=== PATIENT | male | born 1945 | race African-American/Black ===

== ENCOUNTER 2020-02-29 05:10 | Inpatient (IN) ==
[2020-02-29] MEDS ORDERED: Bumetanide 1 MG/4 ML VIAL IVP ONE (05:23)
[2020-02-29 05:40] LABS: Basophils # 0.1 K/mcL (0.0-0.2); Basophils % 0.5 %; Eosinophils # 0.3 K/mcL (0.0-0.6); Eosinophils % 2.9 %; Hematocrit 44.8 % (37.5-50.1); Hemoglobin 13.7 g/dL (12.9-16.9); Immature Granulocytes % 0.3 % (0-4); Lymphocytes % 9.7 %; Mean Corpuscular HGB Conc 30.6 g/dL (31.6-35.5); Mean Corpuscular Hemoglobin 26.9 pg (28.0-33.3); Mean Corpuscular Volume 87.8 fL (83.0-100.0); Monocytes # 0.8 K/mcL (0.0-1.3); Neutrophils # 7.7 K/mcL (1.6-8.9); Platelet Count 226 K/mcL (140-400); Red Cell Distribution Width 18.6 % (11.5-14.5); Segmented Neutrophils % 78.6 %; White Blood Count 9.8 K/mcL (4.3-11.1)
[2020-02-29] MEDS ORDERED: methocarbamoL 500 MG TABLET PO STA (05:51)
[2020-02-29] MEDS ORDERED: methocarbamoL 500 MG TABLET PO ONE (06:00)
[2020-02-29 06:02] LABS: Calcium 9.6 mg/dL (8.6-10.3); Potassium 4.1 mEq/L (3.5-5.1)
[2020-02-29 06:06] LABS: Troponin I 0.04 ng/mL (< 0.04)
[2020-02-29] MEDS ORDERED: *HR* FentaNYL (PF) 100 MCG/2 ML VIAL IVP ONE (06:35)
[2020-02-29] MEDS ORDERED: Naloxone 0.4 MG/ML INJ IVP PRN (07:14)
[2020-02-29 07:18] LABS: Bilirubin,Urine Negative (Negative); Blood,Urine Negative (Negative); Clarity,Urine Clear (Clear); Color,Urine Light-Yellow (Yellow); Glucose,Urine (UA) Normal (Normal); Hyaline Casts,Urine Few per lpf (None Seen); Ketones,Urine Negative (Negative); Leukocyte Esterase,Urine Negative (Negative); Mucus,Urine Few per lpf (None-Few); Nitrite,Urine Negative (Negative); Protein,Urine 100 mg/dL (Neg-Trace); RBC,Urine 0-3 per hpf (0-3); Specific Gravity,Urine 1.015 (1.010-1.025); Squamous Epithelial Cell,Urine Few per hpf (None-Few); Urobilinogen,Urine Normal (Normal)
[2020-02-29] MEDS ORDERED: Dextrose Gel 15 GM/37.5 ML TUBE PO PRN ×2 (07:18)
[2020-02-29] MEDS ORDERED: D5% in Water 1,000 ML IVC PRN (07:18)
[2020-02-29] MEDS ORDERED: *HR* Dextrose 50 % in Water (Vial) 50 ML VIAL IVP PRN (07:18)
[2020-02-29] MEDS ORDERED: Perflutren Lipid Microsphere 1.3 ML in 0.9 % Sodium Chloride 8.7 ML IVP PRN (08:31)
[2020-02-29] MEDS ORDERED: Ipratropium/Albuterol Neb 3 ML IH PRN (08:37)
[2020-02-29] MEDS: Insulin LISPRO 300 UNITS/3 ML VIAL SQ SCH ×3 (08:50→16:46)
[2020-02-29] MEDS: carvediloL 25 MG TABLET PO SCH ×2 (09:13→16:47)
[2020-02-29] MEDS: Gabapentin 300 MG CAPSULE PO SCH ×3 (09:13→20:42)
[2020-02-29] MEDS: Isosorbide MONOnitrate (24 HR) 30 MG TAB.ER.24H PO SCH (09:13)
[2020-02-29] MEDS: *HR* HYDROcodone/Acet 5/325 mg TABLET PO PRN (09:13)
[2020-02-29] MEDS: Insulin DETEMIR 100 UNIT/ML X5UNITS SQ SCH ×2 (09:14→20:42)
[2020-02-29] MEDS: Bumetanide 1 MG/4 ML VIAL IVP SCH ×2 (09:14→16:47)
[2020-02-29] MEDS ORDERED: Gabapentin 300 MG CAPSULE PO ONE (09:49)
[2020-02-29] MEDS: *HR* Rivaroxaban 10 MG TABLET PO SCH (16:47)
[2020-03-01 03:47] LABS: Basophils # 0.1 K/mcL (0.0-0.2); Basophils % 0.6 %; Eosinophils # 0.3 K/mcL (0.0-0.6); Eosinophils % 3.2 %; Hematocrit 40.2 % (37.5-50.1); Hemoglobin 12.5 g/dL (12.9-16.9); Immature Granulocytes % 0.3 % (0-4); Lymphocytes % 10.8 %; Mean Corpuscular HGB Conc 31.1 g/dL (31.6-35.5); Mean Corpuscular Hemoglobin 27.5 pg (28.0-33.3); Mean Corpuscular Volume 88.4 fL (83.0-100.0); Monocytes # 0.8 K/mcL (0.0-1.3); Monocytes % 9.4 %; Neutrophils # 6.7 K/mcL (1.6-8.9); Platelet Count 185 K/mcL (140-400); Red Blood Count 4.55 M/mcL (4.19-5.50); Red Cell Distribution Width 18.5 % (11.5-14.5); Segmented Neutrophils % 75.7 %; White Blood Count 8.8 K/mcL (4.3-11.1)
[2020-03-01 04:02] LABS: INR 2.5; Prothrombin Time 28.7 Seconds (9.4-12.1)
[2020-03-01 04:05] LABS: Activated Partial Thrombo Time 36.1 Seconds (26.0-36.0)
[2020-03-01 04:08] LABS: Albumin 3.4 g/dL (3.5-5.7); Albumin/Globulin Ratio 1.1 (1.1-2.2); Bilirubin,Total 1.2 mg/dL (0.3-1.0); Calcium 9.3 mg/dL (8.6-10.3); Globulin 3.1 g/dL (2.4-3.5); Magnesium 1.5 mg/dL (1.6-2.6); Phosphorous 3.7 mg/dL (2.7-4.5); Potassium 3.8 mEq/L (3.5-5.1); Total Protein 6.5 g/dL (6.4-8.9)
[2020-03-01] MEDS: *HR* HYDROcodone/Acet 5/325 mg TABLET PO PRN ×3 (05:11→19:35)
[2020-03-01] MEDS: Gabapentin 300 MG CAPSULE PO SCH ×3 (07:55→19:36)
[2020-03-01] MEDS: Isosorbide MONOnitrate (24 HR) 30 MG TAB.ER.24H PO SCH (07:55)
[2020-03-01] MEDS: carvediloL 25 MG TABLET PO SCH ×2 (07:55→16:31)
[2020-03-01] MEDS: Insulin LISPRO 300 UNITS/3 ML VIAL SQ SCH ×3 (07:56→16:32)
[2020-03-01] MEDS: Bumetanide 1 MG/4 ML VIAL IVP SCH ×2 (07:56→16:31)
[2020-03-01] MEDS: Insulin DETEMIR 100 UNIT/ML X5UNITS SQ SCH ×2 (07:56→21:51)
[2020-03-01] MEDS: Silvasorb 44.4 ML TUBE TP SCH (16:31)
[2020-03-01] MEDS: *HR* Rivaroxaban 10 MG TABLET PO SCH (16:31)
[2020-03-01] MEDS: Albumin 25% 25gram/100mL 25 GM/100 ML IV.SOLN IVPB SCH ×2 (18:47→23:56)
[2020-03-02 01:55] LABS: Hematocrit 38.4 % (37.5-50.1); Mean Corpuscular HGB Conc 31.3 g/dL (31.6-35.5); Mean Corpuscular Hemoglobin 27.8 pg (28.0-33.3); Mean Corpuscular Volume 88.9 fL (83.0-100.0); Mean Platelet Volume 9.2 fL (9.4-12.4); Platelet Count 185 K/mcL (140-400); Red Blood Count 4.32 M/mcL (4.19-5.50); Red Cell Distribution Width 18.1 % (11.5-14.5)
[2020-03-02 02:03] LABS: Calcium 9.3 mg/dL (8.6-10.3); Magnesium 1.7 mg/dL (1.6-2.6); Phosphorous 3.7 mg/dL (2.7-4.5)
[2020-03-02] MEDS: Insulin LISPRO 300 UNITS/3 ML VIAL SQ SCH ×3 (07:41→15:35)
[2020-03-02] MEDS: Aspirin 81 MG TAB.CHEW PO SCH (07:50)
[2020-03-02] MEDS: carvediloL 25 MG TABLET PO SCH ×2 (07:50→15:27)
[2020-03-02] MEDS: Albumin 25% 25gram/100mL 25 GM/100 ML IV.SOLN IVPB SCH ×2 (07:51→15:26)
[2020-03-02] MEDS: Gabapentin 300 MG CAPSULE PO SCH ×3 (07:51→21:36)
[2020-03-02] MEDS: Isosorbide MONOnitrate (24 HR) 30 MG TAB.ER.24H PO SCH (07:51)
[2020-03-02] MEDS: Insulin DETEMIR 100 UNIT/ML X5UNITS SQ SCH ×2 (07:53→21:36)
[2020-03-02] MEDS: Bumetanide 1 MG/4 ML VIAL IVP SCH (10:26)
[2020-03-02] MEDS: lisinopriL 20 MG TABLET PO SCH (10:26)
[2020-03-02] MEDS: Spironolactone 25 MG TABLET PO SCH (10:26)
[2020-03-02] MEDS: Silvasorb 44.4 ML TUBE TP SCH (10:27)
[2020-03-02 10:31] LABS: Estimated Average Glucose 194 mg/dl
[2020-03-02] MEDS: Furosemide 240 MG in 0.9 % Sodium Chloride 96 ML IVC SCH (15:17)
[2020-03-02] MEDS: *HR* Rivaroxaban 10 MG TABLET PO SCH (15:27)
[2020-03-02] MEDS: *HR* HYDROcodone/Acet 5/325 mg TABLET PO PRN (15:35)
[2020-03-02 16:19] LABS: ABG Base Excess 1 mEq/L (-2 to 3); ABG HCO3 25 mEq/L (21-27); ABG Oxygen Saturation 95 % (95-98); ABG PCO2 41 mmHg (35-45); ABG PO2 76 mmHg (85-104); ABG TCO2 27 mEq/L (20-26); Blood Gas Modality 2.5
[2020-03-02] MEDS: Nystatin POWDER 30 GM BOTTLE TP SCH (21:36)
[2020-03-03 05:01] LABS: Hematocrit 39.5 % (37.5-50.1); Hemoglobin 12.3 g/dL (12.9-16.9); Mean Corpuscular HGB Conc 31.1 g/dL (31.6-35.5); Mean Corpuscular Hemoglobin 27.8 pg (28.0-33.3); Mean Corpuscular Volume 89.4 fL (83.0-100.0); Mean Platelet Volume 9.1 fL (9.4-12.4); Platelet Count 167 K/mcL (140-400); Red Blood Count 4.42 M/mcL (4.19-5.50); Red Cell Distribution Width 18.1 % (11.5-14.5); White Blood Count 7.1 K/mcL (4.3-11.1)
[2020-03-03 05:20] LABS: Albumin 3.8 g/dL (3.5-5.7); Albumin/Globulin Ratio 1.3 (1.1-2.2); Bilirubin,Total 1.6 mg/dL (0.3-1.0); Calcium 9.5 mg/dL (8.6-10.3); Globulin 2.9 g/dL (2.4-3.5); Magnesium 1.9 mg/dL (1.6-2.6); Phosphorous 3.9 mg/dL (2.7-4.5); Total Protein 6.7 g/dL (6.4-8.9)
[2020-03-03 05:27] LABS: % Iron Saturation 15 % (20-55); Iron 36 mcg/dL (65-175); Transferrin 174 mg/dL (203-362)
[2020-03-03 05:39] LABS: Ferritin 87 ng/mL (20-250)
[2020-03-03] MEDS: Insulin LISPRO 300 UNITS/3 ML VIAL SQ SCH ×3 (06:49→16:05)
[2020-03-03] MEDS: Spironolactone 25 MG TABLET PO SCH (08:55)
[2020-03-03] MEDS: Isosorbide MONOnitrate (24 HR) 30 MG TAB.ER.24H PO SCH (08:55)
[2020-03-03] MEDS: carvediloL 25 MG TABLET PO SCH ×2 (08:55→16:04)
[2020-03-03] MEDS: Aspirin 81 MG TAB.CHEW PO SCH (08:55)
[2020-03-03] MEDS: lisinopriL 20 MG TABLET PO SCH (08:55)
[2020-03-03] MEDS: Gabapentin 300 MG CAPSULE PO SCH ×3 (08:56→20:01)
[2020-03-03] MEDS: Silvasorb 44.4 ML TUBE TP SCH (08:56)
[2020-03-03] MEDS: Nystatin POWDER 30 GM BOTTLE TP SCH ×2 (08:56→20:22)
[2020-03-03] MEDS: Albumin 25% 25gram/100mL 25 GM/100 ML IV.SOLN IVPB SCH ×2 (09:00→18:08)
[2020-03-03] MEDS: Insulin DETEMIR 100 UNIT/ML X5UNITS SQ SCH (09:00)
[2020-03-03] MEDS: *HR* HYDROcodone/Acet 5/325 mg TABLET PO PRN ×2 (11:10→20:02)
[2020-03-03] MEDS: Furosemide 240 MG in 0.9 % Sodium Chloride 96 ML IVC SCH (13:30)
[2020-03-03] MEDS: *HR* Rivaroxaban 10 MG TABLET PO SCH (16:04)
[2020-03-04 05:16] LABS: Basophils % 0.6 %; Eosinophils # 0.2 K/mcL (0.0-0.6); Eosinophils % 3.2 %; Hematocrit 39.8 % (37.5-50.1); Hemoglobin 12.1 g/dL (12.9-16.9); Immature Granulocytes % 0.3 % (0-4); Lymphocytes # 0.9 K/mcL (0.6-4.6); Lymphocytes % 13.4 %; Mean Corpuscular HGB Conc 30.4 g/dL (31.6-35.5); Mean Corpuscular Hemoglobin 26.7 pg (28.0-33.3); Mean Corpuscular Volume 87.7 fL (83.0-100.0); Mean Platelet Volume 8.9 fL (9.4-12.4); Monocytes # 0.7 K/mcL (0.0-1.3); Monocytes % 10.5 %; Neutrophils # 4.7 K/mcL (1.6-8.9); Platelet Count 178 K/mcL (140-400); Red Blood Count 4.54 M/mcL (4.19-5.50); Red Cell Distribution Width 18.1 % (11.5-14.5); White Blood Count 6.5 K/mcL (4.3-11.1)
[2020-03-04 05:34] LABS: Albumin 3.7 g/dL (3.5-5.7); Albumin/Globulin Ratio 1.3 (1.1-2.2); Bilirubin,Direct 0.3 mg/dL (0.0-0.2); Bilirubin,Indirect 0.9 mg/dL (0.0-1.0); Bilirubin,Total 1.2 mg/dL (0.3-1.0); Calcium 9.4 mg/dL (8.6-10.3); Globulin 2.9 g/dL (2.4-3.5); Magnesium 1.9 mg/dL (1.6-2.6); Potassium 3.8 mEq/L (3.5-5.1); Total Protein 6.6 g/dL (6.4-8.9)
[2020-03-04 05:48] LABS: Thyroid Stimulating Hormone 7.733 mcIU/mL (0.340-5.600)
[2020-03-04] MEDS: *HR* HYDROcodone/Acet 5/325 mg TABLET PO PRN ×2 (06:04→17:12)
[2020-03-04] MEDS: Albumin 25% 25gram/100mL 25 GM/100 ML IV.SOLN IVPB SCH ×2 (06:04→17:20)
[2020-03-04] MEDS: carvediloL 25 MG TABLET PO SCH ×2 (09:58→17:11)
[2020-03-04] MEDS: Gabapentin 300 MG CAPSULE PO SCH ×3 (09:59→19:58)
[2020-03-04] MEDS: Aspirin 81 MG TAB.CHEW PO SCH (09:59)
[2020-03-04] MEDS: lisinopriL 20 MG TABLET PO SCH (09:59)
[2020-03-04] MEDS: Spironolactone 25 MG TABLET PO SCH (09:59)
[2020-03-04] MEDS: Insulin DETEMIR 100 UNIT/ML X5UNITS SQ SCH (09:59)
[2020-03-04] MEDS: Isosorbide MONOnitrate (24 HR) 30 MG TAB.ER.24H PO SCH (09:59)
[2020-03-04] MEDS: Insulin LISPRO 300 UNITS/3 ML VIAL SQ SCH ×3 (10:01→17:16)
[2020-03-04] MEDS: Nystatin POWDER 30 GM BOTTLE TP SCH ×2 (10:07→19:58)
[2020-03-04] MEDS: Silvasorb 44.4 ML TUBE TP SCH (10:08)
[2020-03-04 11:25] LABS: Total Volume 24 Hour,Urine 2.58 Liters (0.80-1.80)
[2020-03-04 11:51] LABS: Protein/Creatinine Ratio,Urine 0.74 mg/mg (0.00-0.20); Sodium, Urine 79.7 mEq/L
[2020-03-04] MEDS: Furosemide 240 MG in 0.9 % Sodium Chloride 96 ML IVC SCH (13:03)
[2020-03-04] MEDS ORDERED: Ondansetron 4 MG/2 ML VIAL IVP ONE (14:49)
[2020-03-04] MEDS ORDERED: Ferumoxytol 510 MG in 0.9 % Sodium Chloride 100 ML IVPB ONE (15:40)
[2020-03-04] MEDS: *HR* Rivaroxaban 10 MG TABLET PO SCH (17:11)
[2020-03-04] MEDS: Cyanocobalamin (B-12) 1,000 MCG/ML VIAL IM SCH (17:16)
[2020-03-04] MEDS: Sennosides 8.6 MG TABLET PO SCH ×2 (17:16→19:58)
[2020-03-05] MEDS: *HR* HYDROcodone/Acet 5/325 mg TABLET PO PRN ×3 (05:41→21:22)
[2020-03-05] MEDS: Albumin 25% 25gram/100mL 25 GM/100 ML IV.SOLN IVPB SCH (05:42)
[2020-03-05 07:29] LABS: Basophils % 0.4 %; Eosinophils # 0.2 K/mcL (0.0-0.6); Eosinophils % 3.3 %; Hematocrit 38.3 % (37.5-50.1); Hemoglobin 12.1 g/dL (12.9-16.9); Immature Granulocytes % 0.3 % (0-4); Lymphocytes # 0.8 K/mcL (0.6-4.6); Lymphocytes % 11.4 %; Mean Corpuscular HGB Conc 31.6 g/dL (31.6-35.5); Mean Corpuscular Hemoglobin 27.7 pg (28.0-33.3); Mean Corpuscular Volume 87.6 fL (83.0-100.0); Mean Platelet Volume 9.1 fL (9.4-12.4); Monocytes # 0.7 K/mcL (0.0-1.3); Monocytes % 10.3 %; Neutrophils # 5.3 K/mcL (1.6-8.9); Platelet Count 186 K/mcL (140-400); Red Blood Count 4.37 M/mcL (4.19-5.50); Red Cell Distribution Width 17.6 % (11.5-14.5); Segmented Neutrophils % 74.3 %; White Blood Count 7.2 K/mcL (4.3-11.1)
[2020-03-05 07:44] LABS: Calcium 9.6 mg/dL (8.6-10.3); Magnesium 1.8 mg/dL (1.6-2.6); Potassium 3.7 mEq/L (3.5-5.1)
[2020-03-05] MEDS: Spironolactone 25 MG TABLET PO SCH (09:18)
[2020-03-05] MEDS: Gabapentin 300 MG CAPSULE PO SCH ×3 (09:18→21:08)
[2020-03-05] MEDS: Aspirin 81 MG TAB.CHEW PO SCH (09:18)
[2020-03-05] MEDS: Insulin LISPRO 300 UNITS/3 ML VIAL SQ SCH ×3 (09:18→17:14)
[2020-03-05] MEDS: Cyanocobalamin (B-12) 1,000 MCG/ML VIAL IM SCH (09:18)
[2020-03-05] MEDS: Insulin DETEMIR 100 UNIT/ML X5UNITS SQ SCH (09:18)
[2020-03-05] MEDS: lisinopriL 20 MG TABLET PO SCH (09:18)
[2020-03-05] MEDS: Isosorbide MONOnitrate (24 HR) 30 MG TAB.ER.24H PO SCH (09:18)
[2020-03-05] MEDS: Sennosides 8.6 MG TABLET PO SCH ×2 (09:18→21:08)
[2020-03-05] MEDS: carvediloL 25 MG TABLET PO SCH ×2 (09:18→17:12)
[2020-03-05] MEDS: Cyanocobalamin (B-12) 1,000 MCG TABLET PO SCH (09:19)
[2020-03-05] MEDS: Silvasorb 44.4 ML TUBE TP SCH ×2 (13:08→22:02)
[2020-03-05] MEDS: Nystatin POWDER 30 GM BOTTLE TP SCH ×2 (13:08→21:08)
[2020-03-05] MEDS: Bumetanide 1 MG/4 ML VIAL IVP SCH (17:12)
[2020-03-05] MEDS: *HR* Rivaroxaban 10 MG TABLET PO SCH (17:12)
[2020-03-06 01:46] LABS: Basophils % 0.6 %; Eosinophils # 0.2 K/mcL (0.0-0.6); Eosinophils % 3.6 %; Hematocrit 36.1 % (37.5-50.1); Hemoglobin 11.3 g/dL (12.9-16.9); Immature Granulocytes % 0.6 % (0-4); Lymphocytes # 0.8 K/mcL (0.6-4.6); Lymphocytes % 11.5 %; Mean Corpuscular HGB Conc 31.3 g/dL (31.6-35.5); Mean Corpuscular Hemoglobin 27.4 pg (28.0-33.3); Mean Corpuscular Volume 87.4 fL (83.0-100.0); Mean Platelet Volume 9.6 fL (9.4-12.4); Monocytes # 0.8 K/mcL (0.0-1.3); Monocytes % 11.6 %; Neutrophils # 4.8 K/mcL (1.6-8.9); Platelet Count 192 K/mcL (140-400); Red Blood Count 4.13 M/mcL (4.19-5.50); Red Cell Distribution Width 17.5 % (11.5-14.5); Segmented Neutrophils % 72.1 %; White Blood Count 6.6 K/mcL (4.3-11.1)
[2020-03-06 02:00] LABS: Calcium 9.4 mg/dL (8.6-10.3)
[2020-03-06] MEDS: Aspirin 81 MG TAB.CHEW PO SCH (09:01)
[2020-03-06] MEDS: lisinopriL 10 MG TABLET PO SCH (09:01)
[2020-03-06] MEDS: Cyanocobalamin (B-12) 1,000 MCG TABLET PO SCH (09:01)
[2020-03-06] MEDS: *HR* HYDROcodone/Acet 5/325 mg TABLET PO PRN ×2 (09:01→17:16)
[2020-03-06] MEDS: Isosorbide MONOnitrate (24 HR) 30 MG TAB.ER.24H PO SCH (09:01)
[2020-03-06] MEDS: Spironolactone 25 MG TABLET PO SCH (09:01)
[2020-03-06] MEDS: Bumetanide 1 MG/4 ML VIAL IVP SCH ×2 (09:01→17:14)
[2020-03-06] MEDS: Sennosides 8.6 MG TABLET PO SCH (09:01)
[2020-03-06] MEDS: carvediloL 25 MG TABLET PO SCH ×2 (09:01→17:15)
[2020-03-06] MEDS: Gabapentin 300 MG CAPSULE PO SCH ×3 (09:01→21:10)
[2020-03-06] MEDS: Cyanocobalamin (B-12) 1,000 MCG/ML VIAL IM SCH (09:02)
[2020-03-06] MEDS: Silvasorb 44.4 ML TUBE TP SCH ×2 (09:03→22:00)
[2020-03-06] MEDS: Nystatin POWDER 30 GM BOTTLE TP SCH ×2 (09:13→21:10)
[2020-03-06] MEDS: Insulin DETEMIR 100 UNIT/ML X5UNITS SQ SCH (09:19)
[2020-03-06] MEDS: Insulin LISPRO 300 UNITS/3 ML VIAL SQ SCH ×3 (09:20→17:14)
[2020-03-06 13:50] LABS: Alpha 2 Globulin (PEP) 0.76 g/dL (0.48-1.05); Beta Globulin (PEP) 0.72 g/dL (0.48-1.10)
[2020-03-06 14:44] LABS: IFE Reflexed NOT DONE
[2020-03-06] MEDS: *HR* Rivaroxaban 10 MG TABLET PO SCH (17:14)
[2020-03-07 07:59] LABS: Basophils % 0.3 %; Eosinophils # 0.2 K/mcL (0.0-0.6); Eosinophils % 2.9 %; Hematocrit 39.3 % (37.5-50.1); Hemoglobin 12.4 g/dL (12.9-16.9); Immature Granulocytes % 0.3 % (0-4); Lymphocytes # 0.6 K/mcL (0.6-4.6); Lymphocytes % 8.7 %; Mean Corpuscular HGB Conc 31.6 g/dL (31.6-35.5); Mean Corpuscular Hemoglobin 27.7 pg (28.0-33.3); Mean Corpuscular Volume 87.9 fL (83.0-100.0); Mean Platelet Volume 9.2 fL (9.4-12.4); Monocytes # 0.7 K/mcL (0.0-1.3); Monocytes % 10.6 %; Neutrophils # 5.3 K/mcL (1.6-8.9); Platelet Count 178 K/mcL (140-400); Red Blood Count 4.47 M/mcL (4.19-5.50); Red Cell Distribution Width 17.2 % (11.5-14.5); Segmented Neutrophils % 77.2 %; White Blood Count 6.8 K/mcL (4.3-11.1)
[2020-03-07 08:19] LABS: Calcium 9.9 mg/dL (8.6-10.3); Magnesium 1.7 mg/dL (1.6-2.6); Potassium 4.1 mEq/L (3.5-5.1)
[2020-03-07] MEDS: Gabapentin 300 MG CAPSULE PO SCH ×3 (08:49→21:35)
[2020-03-07] MEDS: carvediloL 25 MG TABLET PO SCH ×2 (08:49→16:10)
[2020-03-07] MEDS: Cyanocobalamin (B-12) 1,000 MCG TABLET PO SCH (08:49)
[2020-03-07] MEDS: Isosorbide MONOnitrate (24 HR) 30 MG TAB.ER.24H PO SCH (08:49)
[2020-03-07] MEDS: Aspirin 81 MG TAB.CHEW PO SCH (08:49)
[2020-03-07] MEDS: Spironolactone 25 MG TABLET PO SCH (08:49)
[2020-03-07] MEDS: lisinopriL 10 MG TABLET PO SCH (08:49)
[2020-03-07] MEDS: Cyanocobalamin (B-12) 1,000 MCG/ML VIAL IM SCH (08:50)
[2020-03-07] MEDS: Bumetanide 1 MG/4 ML VIAL IVP SCH ×2 (08:50→16:10)
[2020-03-07] MEDS: Insulin LISPRO 300 UNITS/3 ML VIAL SQ SCH ×3 (08:50→18:15)
[2020-03-07] MEDS: *HR* HYDROcodone/Acet 5/325 mg TABLET PO PRN ×2 (08:52→21:34)
[2020-03-07] MEDS: Nystatin POWDER 30 GM BOTTLE TP SCH ×2 (08:52→21:35)
[2020-03-07] MEDS: Insulin DETEMIR 100 UNIT/ML X5UNITS SQ SCH (08:52)
[2020-03-07] MEDS: Silvasorb 44.4 ML TUBE TP SCH (08:53)
[2020-03-07] MEDS: *HR* Rivaroxaban 10 MG TABLET PO SCH (16:09)
[2020-03-08] MEDS: *HR* HYDROcodone/Acet 5/325 mg TABLET PO PRN ×3 (04:27→22:00)
[2020-03-08 04:40] LABS: Basophils % 0.3 %; Eosinophils # 0.2 K/mcL (0.0-0.6); Eosinophils % 2.9 %; Hematocrit 39.1 % (37.5-50.1); Hemoglobin 12.3 g/dL (12.9-16.9); Immature Granulocytes % 0.5 % (0-4); Lymphocytes # 0.5 K/mcL (0.6-4.6); Lymphocytes % 7.6 %; Mean Corpuscular HGB Conc 31.5 g/dL (31.6-35.5); Mean Corpuscular Hemoglobin 27.6 pg (28.0-33.3); Mean Corpuscular Volume 87.7 fL (83.0-100.0); Mean Platelet Volume 9.6 fL (9.4-12.4); Monocytes # 0.8 K/mcL (0.0-1.3); Monocytes % 13.2 %; Neutrophils # 4.5 K/mcL (1.6-8.9); Platelet Count 182 K/mcL (140-400); Red Blood Count 4.46 M/mcL (4.19-5.50); Red Cell Distribution Width 17.2 % (11.5-14.5); Segmented Neutrophils % 75.5 %; White Blood Count 5.9 K/mcL (4.3-11.1)
[2020-03-08 05:00] LABS: Calcium 9.8 mg/dL (8.6-10.3); Magnesium 1.7 mg/dL (1.6-2.6)
[2020-03-08] MEDS: Insulin LISPRO 300 UNITS/3 ML VIAL SQ SCH ×3 (08:35→18:02)
[2020-03-08] MEDS: Aspirin 81 MG TAB.CHEW PO SCH (09:49)
[2020-03-08] MEDS: Spironolactone 25 MG TABLET PO SCH (09:49)
[2020-03-08] MEDS: Isosorbide MONOnitrate (24 HR) 30 MG TAB.ER.24H PO SCH (09:49)
[2020-03-08] MEDS: Bumetanide 1 MG/4 ML VIAL IVP SCH ×2 (09:50→15:56)
[2020-03-08] MEDS: carvediloL 25 MG TABLET PO SCH ×2 (09:50→15:56)
[2020-03-08] MEDS: Cyanocobalamin (B-12) 1,000 MCG TABLET PO SCH (09:50)
[2020-03-08] MEDS: lisinopriL 10 MG TABLET PO SCH (09:50)
[2020-03-08] MEDS: Gabapentin 300 MG CAPSULE PO SCH ×3 (09:50→22:00)
[2020-03-08] MEDS: Insulin DETEMIR 100 UNIT/ML X5UNITS SQ SCH (09:54)
[2020-03-08] MEDS: Silvasorb 44.4 ML TUBE TP SCH ×2 (12:47→22:01)
[2020-03-08] MEDS: Nystatin POWDER 30 GM BOTTLE TP SCH ×2 (12:47→22:00)
[2020-03-08] MEDS: *HR* Rivaroxaban 10 MG TABLET PO SCH (15:56)
[2020-03-09 04:12] LABS: Basophils % 0.2 %; Eosinophils # 0.1 K/mcL (0.0-0.6); Eosinophils % 2.2 %; Hematocrit 39.6 % (37.5-50.1); Hemoglobin 12.3 g/dL (12.9-16.9); Immature Granulocytes % 0.3 % (0-4); Lymphocytes # 0.7 K/mcL (0.6-4.6); Lymphocytes % 11.7 %; Mean Corpuscular HGB Conc 31.1 g/dL (31.6-35.5); Mean Corpuscular Hemoglobin 26.9 pg (28.0-33.3); Mean Corpuscular Volume 86.5 fL (83.0-100.0); Mean Platelet Volume 9.3 fL (9.4-12.4); Monocytes # 0.9 K/mcL (0.0-1.3); Monocytes % 16.1 %; Platelet Count 174 K/mcL (140-400); Red Blood Count 4.58 M/mcL (4.19-5.50); Red Cell Distribution Width 17.1 % (11.5-14.5); Segmented Neutrophils % 69.5 %; White Blood Count 5.8 K/mcL (4.3-11.1)
[2020-03-09 04:37] LABS: Calcium 9.5 mg/dL (8.6-10.3); Magnesium 1.7 mg/dL (1.6-2.6); Potassium 3.9 mEq/L (3.5-5.1)
[2020-03-09] MEDS: carvediloL 25 MG TABLET PO SCH ×2 (09:12→16:59)
[2020-03-09] MEDS: Isosorbide MONOnitrate (24 HR) 30 MG TAB.ER.24H PO SCH (09:12)
[2020-03-09] MEDS: Insulin DETEMIR 100 UNIT/ML X5UNITS SQ SCH (09:12)
[2020-03-09] MEDS: lisinopriL 10 MG TABLET PO SCH (09:12)
[2020-03-09] MEDS: Aspirin 81 MG TAB.CHEW PO SCH (09:12)
[2020-03-09] MEDS: Gabapentin 300 MG CAPSULE PO SCH ×3 (09:12→22:07)
[2020-03-09] MEDS: Spironolactone 25 MG TABLET PO SCH (09:12)
[2020-03-09] MEDS: Nystatin POWDER 30 GM BOTTLE TP SCH ×2 (09:13→22:07)
[2020-03-09] MEDS: Cyanocobalamin (B-12) 1,000 MCG TABLET PO SCH (09:13)
[2020-03-09] MEDS: Insulin LISPRO 300 UNITS/3 ML VIAL SQ SCH ×3 (09:13→17:00)
[2020-03-09] MEDS: Bumetanide 1 MG/4 ML VIAL IVP SCH ×2 (09:13→16:59)
[2020-03-09] MEDS: *HR* HYDROcodone/Acet 5/325 mg TABLET PO PRN ×2 (15:01→22:07)
[2020-03-09] MEDS: *HR* Rivaroxaban 10 MG TABLET PO SCH (16:59)
[2020-03-10 03:07] LABS: Basophils % 0.4 %; Eosinophils # 0.2 K/mcL (0.0-0.6); Eosinophils % 3.7 %; Hemoglobin 11.8 g/dL (12.9-16.9); Immature Granulocytes % 0.2 % (0-4); Lymphocytes # 0.8 K/mcL (0.6-4.6); Lymphocytes % 14.8 %; Mean Corpuscular HGB Conc 31.1 g/dL (31.6-35.5); Mean Corpuscular Hemoglobin 26.8 pg (28.0-33.3); Mean Corpuscular Volume 86.2 fL (83.0-100.0); Mean Platelet Volume 9.4 fL (9.4-12.4); Monocytes # 0.8 K/mcL (0.0-1.3); Monocytes % 15.2 %; Neutrophils # 3.6 K/mcL (1.6-8.9); Platelet Count 170 K/mcL (140-400); Red Blood Count 4.41 M/mcL (4.19-5.50); Red Cell Distribution Width 16.9 % (11.5-14.5); Segmented Neutrophils % 65.7 %; White Blood Count 5.5 K/mcL (4.3-11.1)
[2020-03-10 03:26] LABS: Calcium 8.9 mg/dL (8.6-10.3); Magnesium 1.7 mg/dL (1.6-2.6); Potassium 3.6 mEq/L (3.5-5.1)
[2020-03-10] MEDS: *HR* HYDROcodone/Acet 5/325 mg TABLET PO PRN ×2 (06:07→21:12)
[2020-03-10] MEDS: Aspirin 81 MG TAB.CHEW PO SCH (09:12)
[2020-03-10] MEDS: Gabapentin 300 MG CAPSULE PO SCH ×3 (09:12→21:11)
[2020-03-10] MEDS: carvediloL 25 MG TABLET PO SCH ×2 (09:12→16:02)
[2020-03-10] MEDS: Spironolactone 25 MG TABLET PO SCH (09:12)
[2020-03-10] MEDS: lisinopriL 10 MG TABLET PO SCH (09:12)
[2020-03-10] MEDS: Insulin DETEMIR 100 UNIT/ML X5UNITS SQ SCH (09:12)
[2020-03-10] MEDS: Cyanocobalamin (B-12) 1,000 MCG TABLET PO SCH (09:12)
[2020-03-10] MEDS: Bumetanide 1 MG/4 ML VIAL IVP SCH ×2 (09:12→16:02)
[2020-03-10] MEDS: Isosorbide MONOnitrate (24 HR) 30 MG TAB.ER.24H PO SCH (09:12)
[2020-03-10] MEDS: Insulin LISPRO 300 UNITS/3 ML VIAL SQ SCH ×3 (09:13→16:02)
[2020-03-10] MEDS: Nystatin POWDER 30 GM BOTTLE TP SCH ×2 (09:13→21:15)
[2020-03-10] MEDS: Silvasorb 44.4 ML TUBE TP SCH (09:13)
[2020-03-10] MEDS: *HR* Rivaroxaban 10 MG TABLET PO SCH (16:01)
[2020-03-11] MEDS: *HR* HYDROcodone/Acet 5/325 mg TABLET PO PRN (05:08)
[2020-03-11 05:36] LABS: Basophils % 0.4 %; Eosinophils # 0.2 K/mcL (0.0-0.6); Eosinophils % 4.1 %; Immature Granulocytes % 0.2 % (0-4); Lymphocytes # 0.9 K/mcL (0.6-4.6); Lymphocytes % 16.7 %; Mean Corpuscular HGB Conc 30.8 g/dL (31.6-35.5); Mean Corpuscular Hemoglobin 27.4 pg (28.0-33.3); Mean Platelet Volume 9.5 fL (9.4-12.4); Monocytes # 0.6 K/mcL (0.0-1.3); Monocytes % 10.8 %; Neutrophils # 3.4 K/mcL (1.6-8.9); Platelet Count 175 K/mcL (140-400); Red Blood Count 4.38 M/mcL (4.19-5.50); Red Cell Distribution Width 16.9 % (11.5-14.5); Segmented Neutrophils % 67.8 %; White Blood Count 5.1 K/mcL (4.3-11.1)
[2020-03-11 05:53] LABS: Alanine Aminotransferase 13 Units/L (7-52); Albumin 3.8 g/dL (3.5-5.7); Albumin/Globulin Ratio 1.3 (1.1-2.2); Alkaline Phosphatase 90 Units/L (34-104); Aspartate Amino Transferase 19 Units/L (13-39); BUN/Creatinine Ratio 27 (6-26); Blood Urea Nitrogen 33 mg/dL (8-23); Calcium 9.2 mg/dL (8.6-10.3); Carbon Dioxide 31 mEq/L (23-29); Chloride 103 mEq/L (98-107); Glucose 90 mg/dL (70-105); Osmolality,Calculated 299 (280-300); Potassium 3.7 mEq/L (3.5-5.1); Sodium 141 mEq/L (136-145); Total Protein 6.8 g/dL (6.4-8.9); eGFR For African Americans > 60 (> 60); eGFR For Non-African Americans 57 (> 60)
[2020-03-11] MEDS: Insulin LISPRO 300 UNITS/3 ML VIAL SQ SCH ×3 (09:04→16:41)
[2020-03-11] MEDS: Isosorbide MONOnitrate (24 HR) 30 MG TAB.ER.24H PO SCH (10:20)
[2020-03-11] MEDS: Aspirin 81 MG TAB.CHEW PO SCH (10:20)
[2020-03-11] MEDS: Gabapentin 300 MG CAPSULE PO SCH ×3 (10:21→20:51)
[2020-03-11] MEDS: Bumetanide 1 MG/4 ML VIAL IVP SCH ×2 (10:21→16:30)
[2020-03-11] MEDS: lisinopriL 10 MG TABLET PO SCH (10:21)
[2020-03-11] MEDS: carvediloL 25 MG TABLET PO SCH ×2 (10:21→16:30)
[2020-03-11] MEDS: Spironolactone 25 MG TABLET PO SCH (10:21)
[2020-03-11] MEDS: Insulin DETEMIR 100 UNIT/ML X5UNITS SQ SCH (10:23)
[2020-03-11] MEDS: Silvasorb 44.4 ML TUBE TP SCH (10:41)
[2020-03-11] MEDS ORDERED: FLU Vac QV 20-21 (6Month+)/PF 0.5 ML SYRINGE IM ONE (10:41)
[2020-03-11] MEDS: Cyanocobalamin (B-12) 1,000 MCG TABLET PO SCH (10:42)
[2020-03-11] MEDS: Nystatin POWDER 30 GM BOTTLE TP SCH ×2 (12:09→20:52)
[2020-03-11] MEDS: *HR* Rivaroxaban 10 MG TABLET PO SCH (16:30)
[2020-03-12] MEDS: Insulin LISPRO 300 UNITS/3 ML VIAL SQ SCH ×3 (07:48→17:07)
[2020-03-12] MEDS: Bumetanide 1 MG/4 ML VIAL IVP SCH ×2 (09:12→17:07)
[2020-03-12] MEDS: Isosorbide MONOnitrate (24 HR) 30 MG TAB.ER.24H PO SCH (09:12)
[2020-03-12] MEDS: Spironolactone 25 MG TABLET PO SCH (09:13)
[2020-03-12] MEDS: Cyanocobalamin (B-12) 1,000 MCG TABLET PO SCH (09:13)
[2020-03-12] MEDS: carvediloL 25 MG TABLET PO SCH ×2 (09:13→17:07)
[2020-03-12] MEDS: Aspirin 81 MG TAB.CHEW PO SCH (09:13)
[2020-03-12] MEDS: Gabapentin 300 MG CAPSULE PO SCH ×2 (09:13→17:07)
[2020-03-12] MEDS: Insulin DETEMIR 100 UNIT/ML X5UNITS SQ SCH (09:14)
[2020-03-12] MEDS: Nystatin POWDER 30 GM BOTTLE TP SCH (09:15)
[2020-03-12] MEDS: Silvasorb 44.4 ML TUBE TP SCH (09:15)
[2020-03-12] MEDS: lisinopriL 10 MG TABLET PO SCH (09:15)
[2020-03-12 09:36] LABS: Magnesium 1.7 mg/dL (1.6-2.6)
[2020-03-12] MEDS: *HR* Rivaroxaban 10 MG TABLET PO SCH (17:07)
[2020-03-12 17:11] VITALS: BP 140/90
== END 2020-03-12 17:53 | disposition home health service (06) | DRG 280 ==
LOC: 2ANU 05:10 → EMEROOARM 05:10 → SUATTDRO 07:29 → 2ANU 08:00 → SUATTDRO 03-02 16:52
PROVIDERS: ADMIT Family Medicine; ATTEND Internal Medicine

== ENCOUNTER 2020-03-17 15:16 | Inpatient (IN) ==
[2020-03-17 18:33] LABS: Basophils % 0.2 %; Eosinophils % 0.1 %; Hematocrit 43.5 % (37.5-50.1); Immature Granulocytes % 0.7 % (0-4); Lymphocytes # 0.7 K/mcL (0.6-4.6); Lymphocytes % 8.6 %; Mean Corpuscular HGB Conc 31.3 g/dL (31.6-35.5); Mean Corpuscular Hemoglobin 26.1 pg (28.0-33.3); Mean Corpuscular Volume 83.3 fL (83.0-100.0); Mean Platelet Volume 10.6 fL (9.4-12.4); Monocytes # 0.7 K/mcL (0.0-1.3); Monocytes % 8.6 %; Neutrophils # 6.7 K/mcL (1.6-8.9); Platelet Count 253 K/mcL (140-400); Red Blood Count 5.22 M/mcL (4.19-5.50); Red Cell Distribution Width 16.5 % (11.5-14.5); Segmented Neutrophils % 81.8 %
[2020-03-17 18:37] LABS: Alanine Aminotransferase 35 Units/L (7-52); Albumin 3.4 g/dL (3.5-5.7); Alkaline Phosphatase 84 Units/L (34-104); Aspartate Amino Transferase 36 Units/L (13-39); BUN/Creatinine Ratio 22 (6-26); Bilirubin,Total 2.4 mg/dL (0.3-1.0); Blood Urea Nitrogen 31 mg/dL (8-23); Calcium 8.9 mg/dL (8.6-10.3); Carbon Dioxide 21 mEq/L (23-29); Chloride 104 mEq/L (98-107); Globulin 3.4 g/dL (2.4-3.5); Glucose 217 mg/dL (70-105); Osmolality,Calculated 299 (280-300); Potassium 3.5 mEq/L (3.5-5.1); Sodium 138 mEq/L (136-145); Total Protein 6.8 g/dL (6.4-8.9); Troponin I 0.07 ng/mL (< 0.04); eGFR For African Americans > 60 (> 60); eGFR For Non-African Americans 50 (> 60)
[2020-03-17 18:39] LABS: Hemoglobin 13.6 g/dL (12.9-16.9); White Blood Count 8.2 K/mcL (4.3-11.1)
[2020-03-17] MEDS ORDERED: Bumetanide 1 MG/4 ML VIAL IVP ONE (19:55)
[2020-03-17] MEDS ORDERED: Acetaminophen 325 MG TABLET PO PRN (20:27)
[2020-03-17] MEDS ORDERED: Naloxone 0.4 MG/ML INJ IVP PRN (20:27)
[2020-03-17] MEDS ORDERED: Ondansetron ODT 4 MG TAB.RAPDIS SL PRN (20:27)
[2020-03-17] MEDS ORDERED: *HR* Dextrose 50 % in Water (Vial) 50 ML VIAL IVP PRN (20:35)
[2020-03-17] MEDS ORDERED: Dexamethasone 4 MG/ML VIAL IVP ONE (20:35)
[2020-03-17] MEDS ORDERED: Dextrose Gel 15 GM/37.5 ML TUBE PO PRN ×2 (20:35)
[2020-03-17] MEDS ORDERED: D5% in Water 1,000 ML IVC PRN (20:35)
[2020-03-17 22:39] LABS: Bacteria,Urine Few per hpf (None-Few); Bilirubin,Urine Small (Negative); Blood,Urine Moderate (Negative); Clarity,Urine Clear (Clear); Color,Urine Yellow (Yellow); Glucose,Urine (UA) Normal (Normal); Granular Casts,Urine Moderate per lpf (None Seen); Hyaline Casts,Urine Moderate per lpf (None Seen); Ketones,Urine Negative (Negative); Leukocyte Esterase,Urine Negative (Negative); Mucus,Urine Few per lpf (None-Few); Nitrite,Urine Negative (Negative); PH,Urine 6.5 pH Units (5.0-8.0); Protein,Urine >=600 mg/dL (Neg-Trace); RBC,Urine 0-3 per hpf (0-3); Specific Gravity,Urine 1.024 (1.010-1.025); Squamous Epithelial Cell,Urine Few per hpf (None-Few)
[2020-03-17] MEDS ORDERED: Azithromycin 500 MG in 0.9 % Sodium Chloride 250 ML IVPB SCH (23:00)
[2020-03-18] MEDS: Insulin LISPRO 300 UNITS/3 ML VIAL SQ SCH ×4 (00:36→18:16)
[2020-03-18 01:02] LABS: Basophils % 0.4 %; Eosinophils % 0.3 %; Hematocrit 39.8 % (37.5-50.1); Hemoglobin 12.7 g/dL (12.9-16.9); Immature Granulocytes % 0.7 % (0-4); Lymphocytes # 0.9 K/mcL (0.6-4.6); Mean Corpuscular HGB Conc 31.9 g/dL (31.6-35.5); Mean Corpuscular Hemoglobin 26.3 pg (28.0-33.3); Mean Corpuscular Volume 82.6 fL (83.0-100.0); Mean Platelet Volume 9.9 fL (9.4-12.4); Monocytes # 0.6 K/mcL (0.0-1.3); Monocytes % 8.2 %; Neutrophils # 5.7 K/mcL (1.6-8.9); Platelet Count 209 K/mcL (140-400); Red Blood Count 4.82 M/mcL (4.19-5.50); Red Cell Distribution Width 16.5 % (11.5-14.5); Segmented Neutrophils % 78.4 %; White Blood Count 7.3 K/mcL (4.3-11.1)
[2020-03-18 01:04] LABS: BUN/Creatinine Ratio 22 (6-26); Blood Urea Nitrogen 31 mg/dL (8-23); Calcium 8.8 mg/dL (8.6-10.3); Carbon Dioxide 26 mEq/L (23-29); Chloride 104 mEq/L (98-107); Glucose 185 mg/dL (70-105); Magnesium 1.7 mg/dL (1.6-2.6); Osmolality,Calculated 301 (280-300); Potassium 3.6 mEq/L (3.5-5.1); Sodium 140 mEq/L (136-145); eGFR For African Americans > 60 (> 60); eGFR For Non-African Americans 50 (> 60)
[2020-03-18 01:05] LABS: INR 1.6
[2020-03-18 01:59] LABS: Troponin I 0.07 ng/mL (< 0.04)
[2020-03-18] MEDS ORDERED: Furosemide 20 MG/2 ML VIAL IVP SCH (08:00)
[2020-03-18] MEDS: Gabapentin 300 MG CAPSULE PO SCH ×3 (08:16→21:38)
[2020-03-18] MEDS: *HR* Rivaroxaban 10 MG TABLET PO SCH (08:16)
[2020-03-18] MEDS: carvediloL 25 MG TABLET PO SCH ×2 (08:16→18:16)
[2020-03-18] MEDS: Silvasorb 44.4 ML TUBE TP SCH (08:16)
[2020-03-18] MEDS: Aspirin 81 MG TAB.CHEW PO SCH (08:16)
[2020-03-18] MEDS: Isosorbide MONOnitrate (24 HR) 30 MG TAB.ER.24H PO SCH (08:16)
[2020-03-18] MEDS: Dexamethasone 4 MG/ML VIAL IVP SCH (15:23)
[2020-03-18] MEDS: Doxycycline 100 MG in 0.9 % Sodium Chloride Mini Bag 100 ML IVPB SCH (15:24)
[2020-03-18] MEDS: cefTRIAXone 1,000 MG in Water for inj. (sterile) 10 ML IVP SCH (15:24)
[2020-03-18] MEDS: Furosemide 20 MG/2 ML VIAL IVP SCH (18:16)
[2020-03-18] MEDS ORDERED: Insulin DETEMIR 100 UNIT/ML X5UNITS SQ SCH (21:45)
[2020-03-19] MEDS: Doxycycline 100 MG in 0.9 % Sodium Chloride Mini Bag 100 ML IVPB SCH ×2 (05:51→18:45)
[2020-03-19 07:13] LABS: Basophils % 0.1 %; Eosinophils % 0.1 %; Hematocrit 41.2 % (37.5-50.1); Hemoglobin 12.6 g/dL (12.9-16.9); Immature Granulocytes % 0.8 % (0-4); Lymphocytes # 0.5 K/mcL (0.6-4.6); Lymphocytes % 5.7 %; Mean Corpuscular HGB Conc 30.6 g/dL (31.6-35.5); Mean Corpuscular Hemoglobin 26.1 pg (28.0-33.3); Mean Corpuscular Volume 85.5 fL (83.0-100.0); Mean Platelet Volume 11.1 fL (9.4-12.4); Monocytes # 0.6 K/mcL (0.0-1.3); Neutrophils # 8.3 K/mcL (1.6-8.9); Nucleated Red Blood Cells 0.2 /100 WBC (0); Platelet Count 250 K/mcL (140-400); Red Blood Count 4.82 M/mcL (4.19-5.50); Red Cell Distribution Width 16.5 % (11.5-14.5); Segmented Neutrophils % 87.3 %; White Blood Count 9.5 K/mcL (4.3-11.1)
[2020-03-19 07:33] LABS: BUN/Creatinine Ratio 25 (6-26); Blood Urea Nitrogen 33 mg/dL (8-23); Calcium 8.8 mg/dL (8.6-10.3); Carbon Dioxide 27 mEq/L (23-29); Chloride 101 mEq/L (98-107); Glucose 384 mg/dL (70-105); Osmolality,Calculated 305 (280-300); Potassium 4.1 mEq/L (3.5-5.1); Sodium 136 mEq/L (136-145); eGFR For African Americans > 60 (> 60); eGFR For Non-African Americans 53 (> 60)
[2020-03-19] MEDS: Insulin LISPRO 300 UNITS/3 ML VIAL SQ SCH ×3 (08:32→17:18)
[2020-03-19] MEDS: Isosorbide MONOnitrate (24 HR) 30 MG TAB.ER.24H PO SCH (08:33)
[2020-03-19] MEDS: Gabapentin 300 MG CAPSULE PO SCH ×3 (08:33→20:44)
[2020-03-19] MEDS: Dexamethasone 4 MG/ML VIAL IVP SCH (08:33)
[2020-03-19] MEDS: Aspirin 81 MG TAB.CHEW PO SCH (08:33)
[2020-03-19] MEDS: *HR* Rivaroxaban 10 MG TABLET PO SCH (08:33)
[2020-03-19] MEDS: Furosemide 20 MG/2 ML VIAL IVP SCH ×2 (08:33→16:33)
[2020-03-19] MEDS: carvediloL 25 MG TABLET PO SCH ×2 (08:33→16:31)
[2020-03-19] MEDS: Nystatin POWDER 30 GM BOTTLE TP SCH ×2 (08:34→20:41)
[2020-03-19] MEDS: Insulin DETEMIR 100 UNIT/ML X5UNITS SQ SCH ×2 (16:25→20:44)
[2020-03-19] MEDS: Silvasorb 44.4 ML TUBE TP SCH (16:25)
[2020-03-19] MEDS: Spironolactone 25 MG TABLET PO SCH (16:31)
[2020-03-19] MEDS: cefTRIAXone 1,000 MG in Water for inj. (sterile) 10 ML IVP SCH (16:31)
[2020-03-19] MEDS ORDERED: Ondansetron 4 MG/2 ML VIAL IVP ONE ×2 (18:32→18:42)
[2020-03-19] MEDS ORDERED: Ondansetron ODT 4 MG TAB.RAPDIS SL PRN (21:03)
[2020-03-19] MEDS ORDERED: Prochlorperazine 10 MG/2 ML VIAL IVP PRN (23:38)
[2020-03-20 01:30] LABS: Basophils % 0.2 %; Eosinophils % 0.1 %; Hematocrit 39.1 % (37.5-50.1); Hemoglobin 12.3 g/dL (12.9-16.9); Immature Granulocytes % 1.4 % (0-4); Lymphocytes % 4.8 %; Mean Corpuscular HGB Conc 31.5 g/dL (31.6-35.5); Mean Corpuscular Hemoglobin 26.3 pg (28.0-33.3); Mean Corpuscular Volume 83.7 fL (83.0-100.0); Mean Platelet Volume 11.3 fL (9.4-12.4); Monocytes # 0.9 K/mcL (0.0-1.3); Monocytes % 5.5 %; Nucleated Red Blood Cells 0.2 /100 WBC (0); Platelet Count 255 K/mcL (140-400); Red Blood Count 4.67 M/mcL (4.19-5.50); Red Cell Distribution Width 16.7 % (11.5-14.5)
[2020-03-20 01:33] LABS: Lymphocytes # 0.7 K/mcL (0.6-4.6); Neutrophils # 13.6 K/mcL (1.6-8.9); White Blood Count 15.5 K/mcL (4.3-11.1)
[2020-03-20 01:37] LABS: BUN/Creatinine Ratio 25 (6-26); Blood Urea Nitrogen 32 mg/dL (8-23); Calcium 8.6 mg/dL (8.6-10.3); Carbon Dioxide 25 mEq/L (23-29); Chloride 103 mEq/L (98-107); Glucose 84 mg/dL (70-105); Osmolality,Calculated 290 (280-300); Potassium 4.4 mEq/L (3.5-5.1); Sodium 137 mEq/L (136-145); eGFR For African Americans > 60 (> 60); eGFR For Non-African Americans 56 (> 60)
[2020-03-20] MEDS: Doxycycline 100 MG in 0.9 % Sodium Chloride Mini Bag 100 ML IVPB SCH ×2 (05:09→17:47)
[2020-03-20] MEDS: Insulin LISPRO 300 UNITS/3 ML VIAL SQ SCH ×3 (07:49→17:31)
[2020-03-20] MEDS: carvediloL 25 MG TABLET PO SCH ×2 (09:28→17:44)
[2020-03-20] MEDS: Isosorbide MONOnitrate (24 HR) 30 MG TAB.ER.24H PO SCH (09:28)
[2020-03-20] MEDS: *HR* Rivaroxaban 10 MG TABLET PO SCH (09:28)
[2020-03-20] MEDS: Aspirin 81 MG TAB.CHEW PO SCH (09:28)
[2020-03-20] MEDS: Spironolactone 25 MG TABLET PO SCH (09:34)
[2020-03-20] MEDS: Insulin DETEMIR 100 UNIT/ML X5UNITS SQ SCH ×2 (09:34→21:02)
[2020-03-20] MEDS: Gabapentin 300 MG CAPSULE PO SCH ×3 (09:46→21:00)
[2020-03-20] MEDS ORDERED: Piperacillin/Tazobactam 3.375 GM in 0.9 % Sodium Chloride Mini Bag 100 ML IVPB STA (10:21)
[2020-03-20] MEDS: Dexamethasone 4 MG/ML VIAL IVP SCH (11:01)
[2020-03-20] MEDS: Furosemide 20 MG/2 ML VIAL IVP SCH ×2 (11:01→17:44)
[2020-03-20] MEDS: Nystatin POWDER 30 GM BOTTLE TP SCH (11:02)
[2020-03-20 11:09] LABS: Basophils % 0.2 %; Hematocrit 40.7 % (37.5-50.1); Hemoglobin 12.5 g/dL (12.9-16.9); Immature Granulocytes % 0.7 % (0-4); Lymphocytes # 0.6 K/mcL (0.6-4.6); Lymphocytes % 4.3 %; Mean Corpuscular HGB Conc 30.7 g/dL (31.6-35.5); Mean Corpuscular Hemoglobin 26.3 pg (28.0-33.3); Mean Corpuscular Volume 85.7 fL (83.0-100.0); Mean Platelet Volume 10.1 fL (9.4-12.4); Monocytes # 0.8 K/mcL (0.0-1.3); Neutrophils # 11.3 K/mcL (1.6-8.9); Platelet Count 242 K/mcL (140-400); Red Blood Count 4.75 M/mcL (4.19-5.50); Red Cell Distribution Width 16.7 % (11.5-14.5); Segmented Neutrophils % 88.8 %; White Blood Count 12.8 K/mcL (4.3-11.1)
[2020-03-20 11:31] LABS: Alanine Aminotransferase 41 Units/L (7-52); Albumin 3.5 g/dL (3.5-5.7); Albumin/Globulin Ratio 0.9 (1.1-2.2); Alkaline Phosphatase 80 Units/L (34-104); Aspartate Amino Transferase 33 Units/L (13-39); BUN/Creatinine Ratio 28 (6-26); Bilirubin,Direct 0.5 mg/dL (0.0-0.2); Bilirubin,Indirect 0.7 mg/dL (0.0-1.0); Bilirubin,Total 1.2 mg/dL (0.3-1.0); Blood Urea Nitrogen 34 mg/dL (8-23); Calcium 9.1 mg/dL (8.6-10.3); Carbon Dioxide 27 mEq/L (23-29); Chloride 101 mEq/L (98-107); Globulin 3.8 g/dL (2.4-3.5); Glucose 110 mg/dL (70-105); Osmolality,Calculated 294 (280-300); Potassium 3.7 mEq/L (3.5-5.1); Sodium 138 mEq/L (136-145); Total Protein 7.3 g/dL (6.4-8.9); Troponin I 0.03 ng/mL (< 0.04); eGFR For African Americans > 60 (> 60); eGFR For Non-African Americans 59 (> 60)
[2020-03-20] MEDS: Morphine Sulfate 2 MG/ML SYRINGE IVP PRN (15:38)
[2020-03-20] MEDS ORDERED: Simethicone 80 MG TAB.CHEW PO PRN (15:52)
[2020-03-20] MEDS ORDERED: Piperacillin/Tazobactam 3.375 GM in 0.9 % Sodium Chloride Mini Bag 100 ML IVPB SCH (16:00)
[2020-03-21] MEDS: Doxycycline 100 MG in 0.9 % Sodium Chloride Mini Bag 100 ML IVPB SCH ×2 (05:29→17:43)
[2020-03-21] MEDS: Morphine Sulfate 2 MG/ML SYRINGE IVP PRN (06:56)
[2020-03-21] MEDS: Silvasorb 44.4 ML TUBE TP SCH ×2 (07:18→16:11)
[2020-03-21] MEDS: Nystatin POWDER 30 GM BOTTLE TP SCH ×3 (07:38→21:04)
[2020-03-21] MEDS: Furosemide 20 MG/2 ML VIAL IVP SCH ×2 (07:55→17:43)
[2020-03-21] MEDS: Spironolactone 25 MG TABLET PO SCH (07:56)
[2020-03-21] MEDS: Gabapentin 300 MG CAPSULE PO SCH ×3 (07:56→21:10)
[2020-03-21] MEDS: Aspirin 81 MG TAB.CHEW PO SCH (07:56)
[2020-03-21] MEDS: Dexamethasone 4 MG/ML VIAL IVP SCH (07:56)
[2020-03-21] MEDS: Insulin LISPRO 300 UNITS/3 ML VIAL SQ SCH ×3 (07:57→16:32)
[2020-03-21] MEDS: *HR* Rivaroxaban 10 MG TABLET PO SCH (07:57)
[2020-03-21] MEDS: carvediloL 25 MG TABLET PO SCH ×2 (07:57→17:43)
[2020-03-21] MEDS: Isosorbide MONOnitrate (24 HR) 30 MG TAB.ER.24H PO SCH (07:57)
[2020-03-21] MEDS: Insulin DETEMIR 100 UNIT/ML X5UNITS SQ SCH ×2 (07:58→21:10)
[2020-03-21 09:20] LABS: Basophils % 0.1 %; Hematocrit 44.3 % (37.5-50.1); Hemoglobin 13.6 g/dL (12.9-16.9); Immature Granulocytes % 0.6 % (0-4); Lymphocytes # 0.6 K/mcL (0.6-4.6); Lymphocytes % 4.5 %; Mean Corpuscular HGB Conc 30.7 g/dL (31.6-35.5); Mean Corpuscular Hemoglobin 26.4 pg (28.0-33.3); Mean Corpuscular Volume 85.9 fL (83.0-100.0); Mean Platelet Volume 10.1 fL (9.4-12.4); Monocytes % 7.2 %; Neutrophils # 12.5 K/mcL (1.6-8.9); Platelet Count 236 K/mcL (140-400); Red Blood Count 5.16 M/mcL (4.19-5.50); Red Cell Distribution Width 16.9 % (11.5-14.5); Segmented Neutrophils % 87.6 %; White Blood Count 14.2 K/mcL (4.3-11.1)
[2020-03-21 09:31] LABS: BUN/Creatinine Ratio 25 (6-26); Blood Urea Nitrogen 31 mg/dL (8-23); Calcium 9.3 mg/dL (8.6-10.3); Carbon Dioxide 28 mEq/L (23-29); Chloride 104 mEq/L (98-107); Glucose 82 mg/dL (70-105); Osmolality,Calculated 298 (280-300); Sodium 141 mEq/L (136-145); eGFR For African Americans > 60 (> 60); eGFR For Non-African Americans 58 (> 60)
[2020-03-22] MEDS: Doxycycline 100 MG in 0.9 % Sodium Chloride Mini Bag 100 ML IVPB SCH (05:36)
[2020-03-22] MEDS: Insulin LISPRO 300 UNITS/3 ML VIAL SQ SCH ×3 (08:19→16:23)
[2020-03-22] MEDS: *HR* Rivaroxaban 10 MG TABLET PO SCH (08:25)
[2020-03-22] MEDS: carvediloL 25 MG TABLET PO SCH ×2 (08:25→16:22)
[2020-03-22] MEDS: Insulin DETEMIR 100 UNIT/ML X5UNITS SQ SCH ×2 (08:25→22:03)
[2020-03-22] MEDS: Gabapentin 300 MG CAPSULE PO SCH ×3 (08:25→22:01)
[2020-03-22] MEDS: Isosorbide MONOnitrate (24 HR) 30 MG TAB.ER.24H PO SCH (08:26)
[2020-03-22] MEDS: Dexamethasone 4 MG/ML VIAL IVP SCH (08:26)
[2020-03-22] MEDS: Spironolactone 25 MG TABLET PO SCH (08:26)
[2020-03-22] MEDS: Aspirin 81 MG TAB.CHEW PO SCH (08:26)
[2020-03-22] MEDS: Furosemide 20 MG/2 ML VIAL IVP SCH (08:26)
[2020-03-22] MEDS: Silvasorb 44.4 ML TUBE TP SCH (08:27)
[2020-03-22] MEDS: Nystatin POWDER 30 GM BOTTLE TP SCH ×2 (08:27→22:06)
[2020-03-22 11:14] LABS: Basophils % 0.2 %; Eosinophils % 0.1 %; Hematocrit 42.2 % (37.5-50.1); Hemoglobin 13.2 g/dL (12.9-16.9); Immature Granulocytes % 0.6 % (0-4); Lymphocytes # 0.5 K/mcL (0.6-4.6); Lymphocytes % 3.9 %; Mean Corpuscular HGB Conc 31.3 g/dL (31.6-35.5); Mean Corpuscular Hemoglobin 26.7 pg (28.0-33.3); Mean Corpuscular Volume 85.3 fL (83.0-100.0); Mean Platelet Volume 10.7 fL (9.4-12.4); Monocytes # 0.8 K/mcL (0.0-1.3); Neutrophils # 11.3 K/mcL (1.6-8.9); Platelet Count 209 K/mcL (140-400); Red Blood Count 4.95 M/mcL (4.19-5.50); Red Cell Distribution Width 16.5 % (11.5-14.5); Segmented Neutrophils % 89.2 %; White Blood Count 12.6 K/mcL (4.3-11.1)
[2020-03-22 11:39] LABS: BUN/Creatinine Ratio 30 (6-26); Blood Urea Nitrogen 29 mg/dL (8-23); Carbon Dioxide 27 mEq/L (23-29); Chloride 104 mEq/L (98-107); Glucose 107 mg/dL (70-105); Osmolality,Calculated 294 (280-300); Potassium 4.3 mEq/L (3.5-5.1); Sodium 139 mEq/L (136-145); eGFR For African Americans > 60 (> 60); eGFR For Non-African Americans > 60 (> 60)
[2020-03-22] MEDS: Bumetanide 1 MG TABLET PO SCH (22:01)
[2020-03-22] MEDS: Doxycycline 100 MG CAPSULE PO SCH (22:02)
[2020-03-23] MEDS: Dexamethasone 4 MG/ML VIAL IVP SCH (08:14)
[2020-03-23] MEDS: Gabapentin 300 MG CAPSULE PO SCH ×3 (08:15→21:38)
[2020-03-23] MEDS: *HR* Rivaroxaban 10 MG TABLET PO SCH (08:15)
[2020-03-23] MEDS: Aspirin 81 MG TAB.CHEW PO SCH (08:15)
[2020-03-23] MEDS: Bumetanide 1 MG TABLET PO SCH ×2 (08:16→21:38)
[2020-03-23] MEDS: Isosorbide MONOnitrate (24 HR) 30 MG TAB.ER.24H PO SCH (08:16)
[2020-03-23] MEDS: Spironolactone 25 MG TABLET PO SCH (08:16)
[2020-03-23] MEDS: Doxycycline 100 MG CAPSULE PO SCH ×2 (08:16→21:38)
[2020-03-23] MEDS: carvediloL 25 MG TABLET PO SCH ×2 (08:16→15:01)
[2020-03-23] MEDS: Insulin DETEMIR 100 UNIT/ML X5UNITS SQ SCH ×2 (08:16→21:39)
[2020-03-23] MEDS: Nystatin POWDER 30 GM BOTTLE TP SCH ×2 (08:17→21:39)
[2020-03-23] MEDS: Silvasorb 44.4 ML TUBE TP SCH (08:17)
[2020-03-23] MEDS: Insulin LISPRO 300 UNITS/3 ML VIAL SQ SCH ×3 (08:17→15:11)
[2020-03-23] MEDS ORDERED: Isovue-370 500 ML BOTTLE IVP ONE (10:44)
[2020-03-23 18:04] LABS: Basophils % 0.1 %; Eosinophils % 0.1 %; Hematocrit 41.2 % (37.5-50.1); Hemoglobin 12.9 g/dL (12.9-16.9); Immature Granulocytes % 0.7 % (0-4); Lymphocytes # 0.5 K/mcL (0.6-4.6); Lymphocytes % 4.3 %; Mean Corpuscular HGB Conc 31.3 g/dL (31.6-35.5); Mean Corpuscular Hemoglobin 26.7 pg (28.0-33.3); Mean Corpuscular Volume 85.3 fL (83.0-100.0); Mean Platelet Volume 10.4 fL (9.4-12.4); Monocytes # 0.7 K/mcL (0.0-1.3); Monocytes % 5.9 %; Neutrophils # 10.8 K/mcL (1.6-8.9); Platelet Count 249 K/mcL (140-400); Red Blood Count 4.83 M/mcL (4.19-5.50); Red Cell Distribution Width 16.2 % (11.5-14.5); Segmented Neutrophils % 88.9 %; White Blood Count 12.1 K/mcL (4.3-11.1)
[2020-03-24] MEDS: Insulin LISPRO 300 UNITS/3 ML VIAL SQ SCH ×3 (08:10→16:51)
[2020-03-24] MEDS: Gabapentin 300 MG CAPSULE PO SCH ×3 (08:11→22:03)
[2020-03-24] MEDS: lisinopriL 10 MG TABLET PO SCH (08:11)
[2020-03-24] MEDS: Doxycycline 100 MG CAPSULE PO SCH ×2 (08:11→22:03)
[2020-03-24] MEDS: Spironolactone 25 MG TABLET PO SCH (08:11)
[2020-03-24] MEDS: *HR* Rivaroxaban 10 MG TABLET PO SCH (08:11)
[2020-03-24] MEDS: Dexamethasone 4 MG/ML VIAL IVP SCH (08:12)
[2020-03-24] MEDS: carvediloL 25 MG TABLET PO SCH ×2 (08:12→16:51)
[2020-03-24] MEDS: Isosorbide MONOnitrate (24 HR) 30 MG TAB.ER.24H PO SCH (08:12)
[2020-03-24] MEDS: Bumetanide 1 MG TABLET PO SCH ×2 (08:12→22:03)
[2020-03-24] MEDS: Aspirin 81 MG TAB.CHEW PO SCH (08:12)
[2020-03-24] MEDS: Insulin DETEMIR 100 UNIT/ML X5UNITS SQ SCH ×2 (08:36→22:03)
[2020-03-24] MEDS: Silvasorb 44.4 ML TUBE TP SCH (14:43)
[2020-03-24] MEDS: Nystatin POWDER 30 GM BOTTLE TP SCH ×2 (14:43→22:08)
[2020-03-24 17:00] LABS: Basophils % 0.4 %
[2020-03-24 17:02] LABS: Basophils # 0.1 K/mcL (0.0-0.2); Eosinophils # 0.1 K/mcL (0.0-0.6); Eosinophils % 0.6 %; Hematocrit 44.3 % (37.5-50.1); Hemoglobin 13.7 g/dL (12.9-16.9); Immature Granulocytes % 0.7 % (0-4); Immature Platelets 3.9 % (1.1-6.1); Lymphocytes # 0.5 K/mcL (0.6-4.6); Lymphocytes % 4.1 %; Mean Corpuscular HGB Conc 30.9 g/dL (31.6-35.5); Mean Corpuscular Hemoglobin 26.7 pg (28.0-33.3); Mean Corpuscular Volume 86.2 fL (83.0-100.0); Mean Platelet Volume 10.5 fL (9.4-12.4); Monocytes # 0.7 K/mcL (0.0-1.3); Neutrophils # 10.8 K/mcL (1.6-8.9); Nucleated Red Blood Cells 0.4 /100 WBC (0); Platelet Count 225 K/mcL (140-400); Red Blood Count 5.14 M/mcL (4.19-5.50); Red Cell Distribution Width 17.6 % (11.5-14.5); Segmented Neutrophils % 88.2 %; White Blood Count 12.2 K/mcL (4.3-11.1)
[2020-03-24] MEDS: Dexmedetomidine HCl 400 MCG/100 ML MLS IVC SCH (22:03)
[2020-03-25 04:24] LABS: BUN/Creatinine Ratio 31 (6-26); Blood Urea Nitrogen 27 mg/dL (8-23); Calcium 9.1 mg/dL (8.6-10.3); Carbon Dioxide 29 mEq/L (23-29); Chloride 102 mEq/L (98-107); Glucose 211 mg/dL (70-105); Magnesium 1.7 mg/dL (1.6-2.6); Osmolality,Calculated 297 (280-300); Potassium 4.1 mEq/L (3.5-5.1); Sodium 138 mEq/L (136-145); eGFR For African Americans > 60 (> 60); eGFR For Non-African Americans > 60 (> 60)
[2020-03-25] MEDS: Dexamethasone 4 MG/ML VIAL IVP SCH (08:48)
[2020-03-25] MEDS: Aspirin 81 MG TAB.CHEW PO SCH (08:49)
[2020-03-25] MEDS: lisinopriL 10 MG TABLET PO SCH (08:49)
[2020-03-25] MEDS: Bumetanide 1 MG TABLET PO SCH ×2 (08:49→21:36)
[2020-03-25] MEDS: carvediloL 25 MG TABLET PO SCH ×2 (08:49→17:32)
[2020-03-25] MEDS: Spironolactone 25 MG TABLET PO SCH (08:49)
[2020-03-25] MEDS: Gabapentin 300 MG CAPSULE PO SCH ×3 (08:49→21:36)
[2020-03-25] MEDS: *HR* Rivaroxaban 10 MG TABLET PO SCH (08:49)
[2020-03-25] MEDS: Isosorbide MONOnitrate (24 HR) 30 MG TAB.ER.24H PO SCH (08:50)
[2020-03-25] MEDS: Dexmedetomidine HCl 400 MCG/100 ML MLS IVC SCH (08:50)
[2020-03-25] MEDS: Nystatin POWDER 30 GM BOTTLE TP SCH ×2 (08:52→21:53)
[2020-03-25] MEDS: Insulin LISPRO 300 UNITS/3 ML VIAL SQ SCH ×3 (08:52→17:33)
[2020-03-25] MEDS: Insulin DETEMIR 100 UNIT/ML X5UNITS SQ SCH ×2 (08:54→21:36)
[2020-03-25] MEDS: Silvasorb 44.4 ML TUBE TP SCH (14:29)
[2020-03-26] MEDS: Aspirin 81 MG TAB.CHEW PO SCH (09:06)
[2020-03-26] MEDS: lisinopriL 10 MG TABLET PO SCH (09:06)
[2020-03-26] MEDS: *HR* Rivaroxaban 10 MG TABLET PO SCH (09:07)
[2020-03-26] MEDS: Isosorbide MONOnitrate (24 HR) 30 MG TAB.ER.24H PO SCH (09:07)
[2020-03-26] MEDS: carvediloL 25 MG TABLET PO SCH ×2 (09:07→17:32)
[2020-03-26] MEDS: Bumetanide 1 MG TABLET PO SCH ×2 (09:07→21:17)
[2020-03-26] MEDS: Dexamethasone 4 MG/ML VIAL IVP SCH (09:07)
[2020-03-26] MEDS: Gabapentin 300 MG CAPSULE PO SCH ×3 (09:07→21:17)
[2020-03-26] MEDS: Spironolactone 25 MG TABLET PO SCH (09:07)
[2020-03-26] MEDS: Silvasorb 44.4 ML TUBE TP SCH (09:08)
[2020-03-26] MEDS: Nystatin POWDER 30 GM BOTTLE TP SCH (09:08)
[2020-03-26] MEDS: Insulin LISPRO 300 UNITS/3 ML VIAL SQ SCH ×3 (09:27→17:33)
[2020-03-26] MEDS: Dexmedetomidine HCl 400 MCG/100 ML MLS IVC SCH (09:27)
[2020-03-26] MEDS: Insulin DETEMIR 100 UNIT/ML X5UNITS SQ SCH ×2 (09:27→21:50)
[2020-03-27] MEDS: Nystatin POWDER 30 GM BOTTLE TP SCH ×3 (02:10→21:41)
[2020-03-27] MEDS: Dexmedetomidine HCl 400 MCG/100 ML MLS IVC SCH ×2 (02:12→21:19)
[2020-03-27] MEDS: Isosorbide MONOnitrate (24 HR) 30 MG TAB.ER.24H PO SCH (09:03)
[2020-03-27] MEDS: Gabapentin 300 MG CAPSULE PO SCH ×3 (09:03→21:18)
[2020-03-27] MEDS: Spironolactone 25 MG TABLET PO SCH (09:03)
[2020-03-27] MEDS: Bumetanide 1 MG TABLET PO SCH ×2 (09:03→21:17)
[2020-03-27] MEDS: *HR* Rivaroxaban 10 MG TABLET PO SCH (09:04)
[2020-03-27] MEDS: lisinopriL 10 MG TABLET PO SCH (09:04)
[2020-03-27] MEDS: Aspirin 81 MG TAB.CHEW PO SCH (09:04)
[2020-03-27] MEDS: carvediloL 25 MG TABLET PO SCH ×2 (09:04→17:55)
[2020-03-27] MEDS: Insulin LISPRO 300 UNITS/3 ML VIAL SQ SCH ×3 (09:09→15:57)
[2020-03-27] MEDS: Silvasorb 44.4 ML TUBE TP SCH (09:10)
[2020-03-27] MEDS: Insulin DETEMIR 100 UNIT/ML X5UNITS SQ SCH ×2 (09:13→21:27)
[2020-03-28] MEDS: *HR* Rivaroxaban 10 MG TABLET PO SCH (07:53)
[2020-03-28] MEDS: Aspirin 81 MG TAB.CHEW PO SCH (07:53)
[2020-03-28] MEDS: Gabapentin 300 MG CAPSULE PO SCH ×3 (07:53→20:53)
[2020-03-28] MEDS: carvediloL 25 MG TABLET PO SCH ×2 (07:53→16:49)
[2020-03-28] MEDS: Bumetanide 1 MG TABLET PO SCH ×2 (07:53→20:53)
[2020-03-28] MEDS: lisinopriL 10 MG TABLET PO SCH (07:53)
[2020-03-28] MEDS: Spironolactone 25 MG TABLET PO SCH (07:54)
[2020-03-28] MEDS: Isosorbide MONOnitrate (24 HR) 30 MG TAB.ER.24H PO SCH (07:55)
[2020-03-28] MEDS: Insulin DETEMIR 100 UNIT/ML X5UNITS SQ SCH (07:56)
[2020-03-28] MEDS: Insulin LISPRO 300 UNITS/3 ML VIAL SQ SCH ×3 (07:57→16:59)
[2020-03-28] MEDS: Silvasorb 44.4 ML TUBE TP SCH (07:57)
[2020-03-28] MEDS: Nystatin POWDER 30 GM BOTTLE TP SCH (07:57)
[2020-03-29] MEDS: Insulin DETEMIR 100 UNIT/ML X5UNITS SQ SCH ×2 (03:08→07:54)
[2020-03-29] MEDS: Isosorbide MONOnitrate (24 HR) 30 MG TAB.ER.24H PO SCH (07:53)
[2020-03-29] MEDS: Gabapentin 300 MG CAPSULE PO SCH ×2 (07:53→16:30)
[2020-03-29] MEDS: Bumetanide 1 MG TABLET PO SCH (07:53)
[2020-03-29] MEDS: carvediloL 25 MG TABLET PO SCH ×2 (07:53→16:31)
[2020-03-29] MEDS: Spironolactone 25 MG TABLET PO SCH (07:53)
[2020-03-29] MEDS: Insulin LISPRO 300 UNITS/3 ML VIAL SQ SCH ×3 (07:54→16:31)
[2020-03-29] MEDS: *HR* Rivaroxaban 10 MG TABLET PO SCH (07:54)
[2020-03-29] MEDS: lisinopriL 10 MG TABLET PO SCH (07:54)
[2020-03-29] MEDS: Silvasorb 44.4 ML TUBE TP SCH (07:55)
[2020-03-29] MEDS: Nystatin POWDER 30 GM BOTTLE TP SCH ×2 (07:55→08:23)
[2020-03-29] MEDS: Aspirin 81 MG TAB.CHEW PO SCH (08:25)
[2020-03-29 09:03] LABS: BUN/Creatinine Ratio 41 (6-26); Blood Urea Nitrogen 45 mg/dL (8-23); Carbon Dioxide 32 mEq/L (23-29); Chloride 94 mEq/L (98-107); Glucose 210 mg/dL (70-105); Osmolality,Calculated 294 (280-300); Potassium 4.4 mEq/L (3.5-5.1); Sodium 133 mEq/L (136-145); eGFR For African Americans > 60 (> 60); eGFR For Non-African Americans > 60 (> 60)
[2020-03-29 20:12] VITALS: BP 118/73
== END 2020-03-29 20:45 | DRG 871 ==
LOC: 2NENU 15:16 → EMEROOARM 15:16 → SUATTDRO 20:17 → 2NENU 21:19 → SUATTDRO 03-18 22:28 → 2NENU 03-27 03:18
PROVIDERS: ADMIT Internal Medicine; ATTEND Internal Medicine